=== PATIENT | male | born 1980 | race Caucasian/White ===

== ENCOUNTER 2021-10-29 17:13 | Emergency (ER) | payer OTHER, BC, SELFPAY ==
--- NOTE | 2021-10-29 17:17 | ED.UPPEXIN ---
HPI - Extremity Injury (Upper) General Chief Complaint: Upper Respiratory Infection Stated Complaint: cough fatigue headache Time Seen by Provider: 10/29/21 17:17 Source: patient and RN notes reviewed History of Present Illness HPI narrative: Patient is a 41-year-old male who presents the urgent care with complaints of fatigue, headache, cough and sweats. Patient states that it started Tuesday evening. Patient states he is taking Ashley-Blackwell, Mucinex and nighttime cold and flu. Patient states he has all over body aches. Denies of any known fevers, nausea, vomiting. States that his and child were sick last week with a stomach bug but denied of any upper respiratory issues. No other acute complaints. No acute distress noted. Patient aware of the plan of care. Some parts of this dictation were generated by voice recognition software and may contain typographical and/or grammatical inaccuracies. Related Data Home Medications Medication Instructions Recorded Confirmed carvedilol 6.25 mg PO BID 10/29/21 10/29/21 lisinopril 5 mg PO DAILY 10/29/21 10/29/21 Allergies Allergy/AdvReac Type Severity Reaction Status Date / Time No Known Allergies Allergy Verified 10/29/21 17:37 Review of Systems Review of Systems: CONSTITUTIONAL: Reports of chills, sweats, fatigue EYES: Denies visual changes, redness, or discharge. ENT: Denies rhinorrhea, congestion, otalgia. Reports of scratchy throat CARDIOVASCULAR: Denies chest pain, palpitations, or edema. RESPIRATORY: Reports of mild cough/clearing of the throat without dyspnea GASTROINTESTINAL: Denies abdominal pain, nausea, vomiting, or diarrhea. GENITOURINARY: Denies dysuria or hematuria. SKIN: Denies rash or itching. MUSCULOSKELETAL: Denies back pain, joint pain. Reports of body aches NEUROLOGIC: Denies headache, numbness, or weakness. All other systems reviewed are negative, except as documented in HPI. PMFSH Comments At the time of my signature, I reviewed and agree with the nursing past medical, surgical, social, and family history. There is no relevant family history pertinent to the patient complaint. Exam Narrative: GENERAL: This is a well-nourished, well-developed patient. Appears slightly fatigued HEAD: normocephalic, atraumatic. EYES: PERRL. Sclera clear/white. Vision is grossly intact. EARS: External ears normal, auditory canals clear and without drainage, TMs normal without perforation. Hearing grossly intact. NOSE: External nose normal with no obvious nasal discharge, nares without redness, no rhinorrhea. THROAT: Mucous membranes moist, posterior pharynx clear. Moderate postnasal drainage NECK: Neck supple, non-tender without lymphadenopathy, masses or thyromegaly. CARDIOVASCULAR: Regular rate and rhythm without murmurs, gallops, or rubs. RESPIRATORY: Clear to auscultation. Breath sounds equal bilaterally. No wheezes, rales, or rhonchi. SKIN: warm, intact with no suspicious lesions or rash, good texture and turgor. NEURO: awake, alert, and oriented to person, place and time. There were no obvious focal neurologic abnormalities. EXTREMITIES: No clubbing, cyanosis, or edema. Course Course Level of Care: Express Care Visit Vital Signs Vital signs: Vital Signs Temperature 97.6 F 10/29/21 17:22 Pulse Rate 80 10/29/21 17:22 Respiratory Rate 18 10/29/21 17:22 Blood Pressure 134/82 10/29/21 17:22 Pulse Oximetry 98 10/29/21 17:22 Temperature 97.6 F 10/29/21 17:22 Pulse Rate 80 10/29/21 17:22 Respiratory Rate 18 10/29/21 17:22 Blood Pressure 134/82 10/29/21 17:22 Pulse Oximetry 98 10/29/21 17:22 Reviewed MDM - Extremity Injury (Upper) MDM Narrative Medical decision making narrative: Reviewed lab results with the patient. He is aware that flu swab was negative. Advised the patient to use Benadryl prior to bedtime and Tylenol/ibuprofen as needed for body aches and fever. Increase water intake and rest. If you develop any in
[2021-10-29 17:22] VITALS: BP 134/82; PULSE 80; RESP 18; TEMP 36.4; O2SAT 98
== END 2021-10-29 17:57 | disposition home or self-care (01) ==
PROVIDERS: Emergency Provider Nurse Practitioner Family
DX: B34.9 Viral infection, unspecified (principal)
CPT/HCPCS: 87804; 99213; G0463

== ENCOUNTER 2024-07-24 16:49 | Emergency (ER) | payer OTHER, SELFPAY ==
--- NOTE | ~2024-07-24 | XR_ITS ---
EXAM: XR lumbar spine 2-3V DATE: 07/24/2024 18:34 HISTORY: back pain . COMPARISON: None available. FINDINGS: 5 nonrib-bearing lumbar-type vertebral bodies. Pedicles intact. Normal vertebral body alig nment. Vertebral body heights preserved. Mild degenerative disc disease at L4-5 and L5-S1. Mild lower lumbar facet arthropathy. No fracture or dislocation. IMPRESSION: No acute fracture or traumatic malalignment detected in the lumbar spine. Reviewed, dictated and finalized at location K. ERING INSPECTOR
[2024-07-24 17:45] VITALS: BP 158/98; PULSE 102; RESP 18; TEMP 37.3; O2SAT 98
--- NOTE | 2024-07-24 18:15 | ED.URI ---
HPI - URI/Sore Throat General Chief Complaint: Upper Respiratory Infection Stated Complaint: Head/body Pain Time Seen by Provider: 07/24/24 18:05 Source: patient, RN notes reviewed and old records reviewed Mode of arrival: ambulatory Limitations: no limitations History of Present Illness HPI Narrative: 44 year old male who presents to [facility] care accompanied by with complaints of lower back pain into his hips starting yesterday with complaints of headache a and cough starting yesterday. Patient has been taking Aleve for his symptoms but has not taken any since this morning. Patient has not done any home COVID or flu testing. Patient reports his lower back and hip pain as 10 Patient report low grade fevers and some chills. MD elicited complaint: cough and other (headache,lower back pain and into hips) Onset (ago): day(s) (since yesterday) Consistency: constant Pain scale (0-10): 10 Description of mucous: clear Able to tolerate fluids by mouth: Yes Treatments prior to arrival: other (Aleve and NyQuil) Related Data Home Medications ?Medication ?Instructions ?Recorded ?Confirmed ?Last Taken ?Type carvedilol 6.25 mg tablet 6.25 mg PO BID 10/29/21 07/24/24 Unknown History lisinopril 5 mg tablet 5 mg PO DAILY 10/29/21 07/24/24 Unknown History aspirin 81 mg tablet,delayed 81 mg PO DAILY 07/24/24 07/24/24 Unknown History release (Adult Low Dose Aspirin) hydroxyzine HCl 10 mg tablet mg 07/24/24 Unknown History lorazepam 0.5 mg tablet mg 07/24/24 Unknown History rosuvastatin 40 mg tablet mg 07/24/24 Unknown History Allergies Allergy/AdvReac Type Severity Reaction Status Date / Time No Known Allergies Allergy Verified 07/24/24 17:53 Review of Systems Review of Systems: CONSTITUTIONAL:Reports malaise, chills, sweats, or fever. EYES: Denies visual changes, redness, or discharge. ENT: Reports rhinorrhea, congestion, sinus pain, no otalgia and no sore throat. CARDIOVASCULAR: Denies chest pain, palpitations, or edema. RESPIRATORY: Reports cough.? Denies dyspnea. GASTROINTESTINAL: Denies abdominal pain, nausea, vomiting, diarrhea SKIN: Denies rash or itching. MUSCULOSKELETAL: Reports lower back pain and hip pain which started yesterday, myalgia. NEUROLOGIC: Reports headache. All systems reviewed & are unremarkable except as noted in HPI and below PMFSH Past Medical History Medical History (Updated 07/27/24 @ 19:34 by Nicole Meadows NP) Anxiety Elevated cholesterol Hypertension Cardiomyopathy Back pain Surgical History Surgical History (Updated 07/27/24 @ 19:31 by Nicole Meadows NP) Hx of vein stripping left leg History of surgery on wrist left Social History Social History (Updated 07/27/24 @ 19:28 by Nicole Meadows NP) Smoking status: Former smoker Alcohol intake: unknown Substance use type: does not use Comments At time of signature, agree with nursing past medical, surgical, social and family history. There is no relevant family history pertinent to the presenting complaint Exam Narrative: GENERAL: Well-appearing, well-nourished, and in reports acute pain in back and into hips HEAD: Normocephalic EYES: PERRLA, conjunctivae clear ENT: Nares clear, turbinates edematous and erythematous, clear discharge. Mucous membranes moist, facial pressure and headache. TM pearly figueroa with dull light reflex bilaterally; no tragal tenderness. Oropharynx erythematous without lesions. Tonsils not enlarged and without exudate, no drooling, no hoarseness, no trismus, uvula midline.post nasal drainage NECK: Supple. No lymphadenopathy CHEST: Clear to auscultation, breath sounds equal. No wheezing, rhonchi, rales, or stridor. No respiratory distress, speaks in full sentences. cough SAO2 98% on room air HEART: Regular rate and rhythm. No murmur heard. SKIN: Warm, dry, no rash. NEURO: Alert and oriented x3.Full mobility of all extremities, denies any saddle paraesthesia, gait steady,no pain into legs or any numbness or tingling or any difficulty passing urine or stool. PSYCH: Normal mood and affect, anxious Course Course Emergency Course: Patient is aware of diagnosis, understands and agrees to treatment plan.? Anticipatory guidance given.? Patient agrees to follow-up as directed and is aware of reasons to seek care at the emergency department. Portions of this record may have been created with voice recognition software Level of Care: Express Care Visit Vital Signs Vital signs: Vital Signs Temperature 37.3 C 07/24/24 17:45 Pulse Rate 102 H 07/24/24 17:45 Respiratory Rate 18 07/24/24 17:45 Blood Pressure 158/98 H 07/24/24 17:45 Pulse Oximetry 98 07/24/24 17:45 Temperature 37.3 C 07/24/24 17:45 Pulse Rate 102 H 07/24/24 17:45 Respiratory Rate 18 07/24/24 17:45 Blood Pressure 158/98 H 07/24/24 17:45 Pulse Oximetry 98 07/24/24 17:45 Reviewed MDM - URI/Sore Throat MDM Narrative Medical decision making narrative: Differential diagnosis considered: Mendoza virus, strep pharyngitis, allergic rhinitis, upper respiratory tract infection, sinusitis, rhinosinusitis, nasopharyngitis. viral pharyngitis, otitis media, otitis externa, pneumonia, bronchitis, viral cough syndrome, viral syndrome, and influenza.? Exam findings show no acute concerns or changes; patient is non-toxic appearing and is in no distress.? Patient is appropriate for outpatient treatment and follow-up. Differential Diagnosis Differential diagnosis: Likely upper respiratory infection, sinusitis, viral infection, influenza and other (lower back pain into hips) Medical Records Attestation: I reviewed the patient's medical records. Lab Data Attestation: I reviewed the patient's lab results. Lab results narrative: Influenza A positive, Influenza B negative, Covid antigen negative Labs: Lab Results 07/24/24 Range/Units 18:45 POC Influenza A Ag Positive (Negative) POC Influenza B Ag Negative (Negative) POC SARS CoV-2 Ag Negative (Negative) reviewed Imaging Data Attestation: I personally reviewed and interpreted this imaging study as follows: My impression: no fracture or traumatic mal alignment mild degenerative disc disease L4-5,L5-S1 Radiologist's impression: [facility] [address] [facility] [place], [place] [id number] XRay Report Signed Patient: Ariel Morfin : 1980 MR#: [id number] Age: 44 Acct:[id number] Loc: [facility] ADM Date: 07/24/24Attending Dr: Ordering Physician: Nicole Meadows APRN Date of Service: 07/24/24 Procedure(s): XR lumbar spine 2-3V Accession Number(s): [id number] cc: Nicole Meadows APRN; Kwan, Onur Steele MD~ EXAM: XR lumbar spine 2-3V DATE: 07/24/2024 18:34 HISTORY: back pain . COMPARISON: None available. FINDINGS: 5 nonrib-bearing lumbar-type vertebral bodies. Pedicles intact. Normal vertebral body alignment. Vertebral body heights preserved. Mild degenerative disc disease at L4-5 and L5-S1. Mild lower lumbar facet arthropathy. No fracture or dislocation. IMPRESSION: No acute fracture or traumatic malalignment detected in the lumbar spine. Reviewed, dictated and finalized at location K. ING MAN Please be advised this is a medical document. It is intended for [id number] communication. It is written in medical language and may contain unfamiliar abbreviations or verbiage. Medical documents are intended to carry relevant information, facts as evident, and the clinical opinion of the practitioner at the time of the encounter. This report may have been done utilizing a voice recognition system. Attempts have been made to correct errors. However, there may be uncorrected grammatical, spelling, and recognition errors present. The file time of this note does not necessarily represent the time the patient was seen. Dictated By: Ismael Mendoza MD 07/24/24 1838 Signed By: <Electronically signed by Ismael Mendoza MD in OV> Critical Care Time Critical Care Time Critical Care Time: No Discharge Plan Discharge Clinical Impression: Influenza A Back pain Qualifiers: Back pain location: low back pain Chronicity: acute Back pain laterality: bilateral Sciatica presence: with sciatica Sciatica laterality: bilateral sciatica Qualified Code(s): M54.42 - Lumbago with sciatica, left side Patient Disposition: Home, Self-Care Condition: Stable Instructions: Antibiotic Form, Influenza (ED) Additional Instructions: Increase fluids especially juices and water Yaed-upb-rijucva cough and cold medicine of your choice for your symptoms Zyrtec Claritin or Ruth daily Tylenol or ibuprofen for any fever pain heat to the face 20-30 minutes 4-6 times a day for pain Salt water gargles, throat lozenges or throat sprays as desired pain med as prescribed back pain must be fever free for 24 hours without use of Tylenol or ibuprofen before he can return to work If your symptoms persist, change or worsen significantly before you can contact your personal physician then please, without delay, go to the emergency department for further evaluation. Follow-up with PCP in 7-10 days or sooner if needed Follow up with PCP soon in regards to your blood pressure which is elevated above threshold for referral. Blood pressure above 120/80 may indicate pre-hypertension.158/98 Patient Language: Luxembourgish Prescriptions: New acetaminophen-codeine 300-30 mg tablet 1 tablet PO Q8H PRN (Reason: pain) Qty: 10 0RF No Action carvedilol 6.25 mg Tablet 6.25 mg PO BID lisinopril 5 mg Tablet 5 mg PO DAILY lorazepam 0.5 mg tablet hydroxyzine HCl 10 mg tablet rosuvastatin 40 mg tablet aspirin [Adult Low Dose Aspirin] 81 mg tablet,delayed release (DR/EC) 81 mg PO DAILY Follow-up/Referrals: Kwan,MD Onur [Primary Care Provider] - Stand Alone Forms: Work/School Release IP Time of Disposition: 19:36 Quality Naya Coma Scale Eyes: Open Verbal: Oriented and Alert Motor: Follows Commands Naya Coma Total Score: 15
[2024-07-24 18:47] LABS: EDCOVIDSCREEN Negative (Negative); EDINFLUASCREEN Positive (Negative); EDINFLUBSCREEN Negative (Negative)
== END 2024-07-24 19:37 | disposition home or self-care (01) ==
PROVIDERS: Emergency Provider Registered Nurse; PCP Family Medicine
DX: J10.1 Influenza due to other identified influenza virus with other respiratory manifestations (principal); M54.42 Lumbago with sciatica, left side; M54.41 Lumbago with sciatica, right side; Z20.822 Contact with and (suspected) exposure to COVID-19; Z87.891 Personal history of nicotine dependence; I10 Essential (primary) hypertension; E78.00 Pure hypercholesterolemia, unspecified; I42.9 Cardiomyopathy, unspecified; Z79.82 Long term (current) use of aspirin
CPT/HCPCS: 72100; 87426; 87804; 99213; G0463

== ENCOUNTER 2025-01-11 16:50 | Emergency (ER) | payer OTHER, SELFPAY ==
--- NOTE | ~2025-01-11 | US_ITS ---
EXAMINATION: US venous doppler [facility] DATE: 01/12/2025 07:48 INDICATION: Lower limb pain TECHNIQUE: Grayscale ultrasound images without and with compression and Doppler ultrasound images of the bilateral lower extremity veins were obtained. COMPARISON: None. FINDINGS: The visualized portions of right common femoral vein, profunda (deep) femoral vein, femoral vein, pop liteal vein, posterior tibial veins, peroneal vein and greater saphenous vein outflow are patent. The visualized portions of left common femoral vein, profunda femoral vein, femoral vein, popliteal v ein, posterior tibial veins, peroneal veins and greater saphenous vein outflow are patent. IMPRESSION: 1. No deep venous thrombosis in either lower limb. Reviewed, dictated and finalized at location A.
--- NOTE | ~2025-01-11 | XR_ITS ---
CHEST RADIOGRAPH CLINICAL HISTORY: dyspnea . COMPARISON: None available TECHNIQUE: Single portable view of the chest. FINDINGS The cardiomediastinal silhouette is unremarkable. The lungs are clear. IMPRESSION: No focal infiltrate or effusion. Reviewed, dictated and finalized at location A.
[2025-01-11 17:11] VITALS: BP 138/90; PULSE 81; RESP 20; TEMP 36.7; O2SAT 98
[2025-01-11 19:57] VITALS: BP 130/68; PULSE 80; RESP 20; TEMP 36.8; O2SAT 99
--- NOTE | 2025-01-11 20:29 | ECG_ITS ---
Test Date: 2025-01-11 20:42:50 Measurements Intervals [place] Rate: 73 P: 40 MS: 185 QRS: 46 QRSD: 106 T: 43 QT: 338 QTc: 373 Interpretive Statements SINUS RHYTHM MINIMAL Q WAVES- ANTEROLATERAL LEADS BASELINE ARTIFACT- I, II, III, AVL, V1-V2 BORDERLINE ECG No previous ECG available for comparison Electronically Signed On 01-11-2025 21:29:17 CDT by Dionicio Murdock D.O.
[2025-01-11 20:57] LABS: Basophils Absolute Auto 0.1 K/mm3 (0.0-0.1); Basophils Percent Auto 0.9 % (0.2-1.2); Eosinophils Absolute Auto 0.2 K/mm3 (0-0.3); Eosinophils Percent Auto 2.8 % (0-4.4); Hematocrit 54.3 % (42.0-52.0); Hemoglobin 18.3 g/dL (14.0-18.0); Immature Granulocyte Absolute 0.03 K/mm3 (0.00-0.031); Immature Granulocyte Percent A 0.4 % (0-0.5); Lymphocytes Absolute Auto 2.46 K/mm3 (0.9-3.2); Lymphocytes Percent Auto 31.6 % (18.3-44.2); Mean Corpuscular HGB Conc 33.7 g/dl (32-36); Mean Corpuscular Hemoglobin 30.3 pg (26-34); Mean Corpuscular Volume 89.9 fl (80-100); Mean Platelet Volume 9.8 fl (7.4-10.4); Monocytes Absolute Auto 0.7 K/mm3 (0.1-0.6); Monocytes Percent Auto 8.7 % (2.6-8.5); Neutrophils Absolute Auto 4.3 K/mm3 (1.3-6.7); Neutrophils Percent Auto 55.6 % (45.5-73.1); Platelet Count Result 207 k/mm3 (150-375); Red Blood Count 6.04 M/mm3 (4.6-6.20); Red Cell Distribution Width 13.2 % (11.5-14.5); White Blood Count 7.8 K/mm3 (4.5-10.0)
[2025-01-11 21:11] LABS: Alanine Aminotransferase 20 U/L (6-50); Albumin Level 4.6 g/dL (3.5-5.1); Alkaline Phosphatase 45 U/L (38-126); Anion Gap 10 mmol/L (4-12); Aspartate Amino Transferase 35 U/L (17-59); Bilirubin,Total 0.6 mg/dL (0.2-1.3); Blood Urea Nitrogen 16 mg/dL (9-20); Calcium 9.6 mg/dL (8.4-10.2); Carbon Dioxide 27 mmol/L (22-30); Chloride 102 mmol/L (98-107); Estimated CRCL calculation 96 ml/min; Estimated Glomerular Filt Rate > 60; Glucose 92 mg/dL (65-110); Lipase 160 U/L (23-300); Potassium 4.3 mmol/L (3.4-5.0); Prothrombin Time 13.6 Seconds (11.1-14.7); Sodium 139 mmol/L (137-145); Total Protein 8.2 g/dL (6.3-8.2)
[2025-01-11 21:12] LABS: Partial Thromboplastin Time 25.8 Seconds (22.3-36.8)
[2025-01-11 21:14] LABS: D Dimer 0.32 ug/mL (<0.48)
[2025-01-11 21:22] LABS: NT Pro B Type Natriuretic Pept < 20 pg/mL (19.9-100); Troponin I < 0.012 ng/mL (0.000-0.034)
[2025-01-11 21:23] LABS: Troponin I < 0.012 ng/mL (0.000-0.034)
--- NOTE | 2025-01-11 21:52 | ED_ITS ---
HPI - General Adult General Chief complaint: Extremity Injury, Lower Stated complaint: LEFT LEG VEINS Time Seen by Provider: 01/11/25 20:21 History of Present Illness HPI narrative: Patient is a 44-year-old gentleman presents emergency department chief complaint of veins popping out in his lower extremities. Patient reports that he has history of congestive heart failure reports that he has not had an echo in several years reports that today he was at work and felt as though there was water running down his legs and noticed that his veins were dilated in his legs the patient states that this is improved reports he has had vein stripping before in the past reports he sees a surgical technician at another facility but has not seen them in several years the patient states his primary doctor than riding his medications patient states that he has had some shortness of breath with exertion and reports that he has not had a echo for some time. Patient denies orthopnea denies PND Related Data Home Medications ?Medication ?Instructions ?Recorded ?Confirmed ?Last Taken ?Type carvedilol 6.25 mg tablet 6.25 mg PO BID 10/29/21 07/24/24 Unknown History lisinopril 5 mg tablet 5 mg PO DAILY 10/29/21 07/24/24 Unknown History aspirin 81 mg tablet,delayed 81 mg PO DAILY 07/24/24 07/24/24 Unknown History release (Adult Low Dose Aspirin) hydroxyzine HCl 10 mg tablet mg 07/24/24 Unknown History lorazepam 0.5 mg tablet mg 07/24/24 Unknown History rosuvastatin 40 mg tablet mg 07/24/24 Unknown History Allergies Allergy/AdvReac Type Severity Reaction Status Date / Time No Known Allergies Allergy Verified 01/11/25 17:13 Review of Systems 2 Review of Systems: A 10 system review of systems was completed on the patient and is negative except for what is stated in the HPI. Nursing and ancillary documentation was reviewed. [facility] Past Medical History Medical History Anxiety Elevated cholesterol Hypertension Cardiomyopathy Back pain Surgical History Surgical History Hx of vein stripping left leg History of surgery on wrist left Social History Social History Smoking status: Former smoker Alcohol intake: unknown Substance use type: does not use Exam 2 Narrative: GENERAL: Well-appearing, well-nourished, and in no acute distress. HEAD: Normocephalic, atraumatic. EYES: PERRLA and EOMI. ENT: Nares clear, no rhinorrhea or epistaxis. Mucous membranes moist. NECK: Supple. CHEST: Clear to auscultation. No respiratory distress. HEART: Regular rate and rhythm. No murmur heard. Normal peripheral pulses. ABDOMEN: Soft, nontender, nondistended, normal active bowel sounds. EXTREMITIES: Normal range of motion. No edema. SKIN: Warm, dry, no rash. NEURO: No focal deficits. Alert and oriented x3. PSYCH: Normal mood and affect. Course Vital Signs Vital signs: Vital Signs Temperature 36.7 C 01/11/25 17:11 Pulse Rate 81 01/11/25 17:11 Respiratory Rate 01/11/25 17:11 Blood Pressure 138/90 01/11/25 17:11 Pulse Oximetry 98 01/11/25 17:11 Oxygen Delivery Room Air 01/11/25 17:11 Temperature 36.8 C 01/11/25 19:57 Pulse Rate 80 01/11/25 19:57 Respiratory Rate 01/11/25 19:57 Blood Pressure 130/68 01/11/25 19:57 Pulse Oximetry 99 01/11/25 19:57 Oxygen Delivery Room Air 01/11/25 19:57 Medical Decision Making [facility] Narrative Medical decision making narrative: Differential diagnosis includes DVT, CHF, Chest x-ray showed no cardiomegaly no pulmonary edema BNP was within normal limits Troponin was negative Renal function was within normal limits EKG showed no acute ischemic changes Vital Signs Vital Signs: Vital Signs Temperature 36.7 C 01/11/25 17:11 Pulse Rate 81 01/11/25 17:11 Respiratory Rate 01/11/25 17:11 Blood Pressure 138/90 01/11/25 17:11 Pulse Oximetry 98 01/11/25 17:11 Oxygen Delivery Room Air 01/11/25 17:11 Temperature 36.8 C 01/11/25 19:57 Pulse Rate 80 01/11/25 19:57 Respiratory Rate 20 01/11/25 19:57 Blood Pressure 130/68 01/11/25 19:57 Pulse Oximetry 99 01/11/25 19:57 Oxygen Delivery Room Air 01/11/25 19:57 Lab Data 01/11/25 20:48 01/11/25 20:48 Labs: Lab Results 01/11/25 01/11/25 Range/Units 20:48 20:48 WBC 7.8 (4.5-10.0) K/mm3 RBC 6.04 (4.6-6.20) M/mm3 Hgb 18.3 H (14.0-18.0) g/dL Hct 54.3 H (42.0-52.0) % MCV 89.9 (80-100) fl MCH 30.3 (26-34) pg MCHC 33.7 (32-36) g/dl RDW 13.2 (11.5-14.5) % Plt Count 207 (150-375) k/mm3 MPV 9.8 (7.4-10.4) fl Immature Gran % (Auto) 0.4 (0-0.5) % Neut % (Auto) 55.6 (45.5-73.1) % Lymph % (Auto) 31.6 (18.3-44.2) % Emanuel % (Auto) 8.7 H (2.6-8.5) % Eos % (Auto) 2.8 (0-4.4) % Baso % (Auto) 0.9 (0.2-1.2) % Lymph # (Auto) 2.46 (0.9-3.2) K/mm3 Emanuel # (Auto) 0.7 H (0.1-0.6) K/mm3 Eos # (Auto) 0.2 (0-0.3) K/mm3 Baso # (Auto) 0.1 (0.0-0.1) K/mm3 Abs Immat Gran (auto) 0.03 (0.00-0.031) K/mm3 Absolute Neuts (auto) 4.3 (1.3-6.7) K/mm3 Absolute Nucleated RBC 0.000 (0.0-0.012) K/mm3 Nucleated RBC % 0.0 (0.0-0.2) % PT 13.6 (11.1-14.7) Seconds INR 1.0 APTT 25.8 (22.3-36.8) Seconds D-Dimer 0.32 (<0.48) ug/mL Sodium 139 (137-145) mmol/L Potassium 4.3 (3.4-5.0) mmol/L Chloride 102 (98-107) mmol/L Carbon Dioxide 27 (22-30) mmol/L Anion Gap 10 (4-12) mmol/L BUN 16 (9-20) mg/dL Creatinine 0.94 (0.7-1.3) mg/dL Estim Creat Clear Calc 96 ml/min Estimated GFR > 60 (59 - ) Glucose 92 (65-110) mg/dL Calcium 9.6 (8.4-10.2) mg/dL Magnesium 2.0 (1.6-2.3) mg/dL Total Bilirubin 0.6 (0.2-1.3) mg/dL AST 35 (17-59) U/L ALT 20 (6-50) U/L Alkaline Phosphatase 45 (38-126) U/L Troponin I < 0.012 < 0.012 (0.000-0.034) ng/mL NT-Pro-B Natriuret Pep < 20 (19.9-100) pg/mL Total Protein 8.2 (6.3-8.2) g/dL Albumin 4.6 (3.5-5.1) g/dL Lipase 160 (23-300) U/L TSH (Reflex) 4.810 H (0.465-4.68) uIU/mL Free T4 Pending Discharge Plan Discharge Clinical Impression: Lower extremity pain Patient Disposition: Home Condition: Stable Instructions: Antibiotic Form, Leg Pain (ED) Additional Instructions: Her laboratory testing today was very reassuring. Please follow-up in the morning at 7:00 a.m. with department Radiology for an ultrasound of your legs to make sure that there is no blood clot. Patient Language: Yi Prescriptions: No Action carvedilol 6.25 mg Tablet 6.25 mg PO BID lisinopril 5 mg Tablet 5 mg PO DAILY lorazepam 0.5 mg tablet hydroxyzine HCl 10 mg tablet rosuvastatin 40 mg tablet aspirin [Adult Low Dose Aspirin] 81 mg tablet,delayed release (DR/EC) 81 mg PO DAILY acetaminophen-codeine 300-30 mg tablet 1 tablet PO Q8H PRN (Reason: pain) Qty: 10 0RF Follow-up/Referrals: KwanOnur MD [Primary Care Provider] - Time of Disposition: 22:06
[2025-01-11 22:18] VITALS: BP 128/72; PULSE 78; RESP 19; O2SAT 100
[2025-01-11 22:44] LABS: Free T4 Free Thyroxine Reflex 0.99 ng/dL (0.78-2.19)
[2025-01-11 23:56] LABS: Total Triiodothyronine (T3) 1.37 NG/ML (0.82-1.58)
== END 2025-01-11 22:23 | disposition home or self-care (01) ==
PROVIDERS: Emergency Provider Emergency Medicine; PCP Family Medicine
DX: M79.604 Pain in right leg (principal); M79.605 Pain in left leg; I10 Essential (primary) hypertension
CPT/HCPCS: 36415; 71045; 80053; 83690; 83735; 83880; 84439; 84443; 84480; 84484; 85025; 85380; 85610; 85730; 93005; 93970; 99284